=== PATIENT | female | born 2000 ===

== ENCOUNTER 2018-06-17 04:09 | Emergency (ER) | payer OTHER ==
[2018-06-17] MEDS ORDERED: Sodium Chloride 0.9% 1,000 ML IV ONE (04:34)
--- NOTE | 2018-06-17 04:39 | C.PDOC ---
History Of Present Illness 17 year old brought to the ED by grandmother complaining of abdominal pain, nausea, and vomiting for one hour. Patient states the last PO intake she had was spaghetti, rice, beans, and chicken wings. Notes a h/o similar symptoms in the past. She was given omeprazole at home. Patient denies any fever, chills, diarrhea, SOB, CP, or any other symptoms. Time Seen by Provider: 06/17/18 04:23 Chief Complaint (Nursing): Abdominal Pain History Per: Patient, Family (Grandmother ) History/Exam Limitations: no limitations Onset/Duration Of Symptoms: Hrs (one) Current Symptoms Are (Timing): Still Present Context: Food Location Of Pain/Discomfort: Epigastric Radiation Of Pain To:: None Associated Symptoms: Nausea, Vomiting. denies: Fever, Chills, Diarrhea, Chest Pain Past Medical History Reviewed: Historical Data, Nursing Documentation, Vital Signs Vital Signs: Last Vital Signs Temp 98 F 06/17/18 06:44 Pulse 80 06/17/18 06:44 Resp 14 06/17/18 06:44 BP 130/70 06/17/18 06:44 Pulse Ox 98 06/17/18 06:44 - Medical History PMH: Asthma Surgical History: No Surg Hx Family History: States: No Known Family Hx - Social History Hx Alcohol Use: No Hx Substance Use: No - Immunization History Hx Tetanus Toxoid Vaccination: No Hx Influenza Vaccination: No Hx Pneumococcal Vaccination: No Review Of Systems Except As Marked, All Systems Reviewed And Found Negative. Constitutional: Positive for: Fever, Chills Cardiovascular: Negative for: Chest Pain Respiratory: Negative for: Shortness of Breath Gastrointestinal: Positive for: Nausea, Vomiting, Abdominal Pain. Negative for : Diarrhea Physical Exam - Physical Exam Appears: Non-toxic, No Acute Distress Skin: Warm, Dry Head: Atraumatic, Normacephalic Eye(s): bilateral: Normal Inspection, EOMI Nose: Normal Oral Mucosa: Moist Neck: Normal ROM, Supple Chest: Symmetrical Cardiovascular: Rhythm Regular Respiratory: Normal Breath Sounds, No Accessory Muscle Use, Other (Speaking full sentences) Gastrointestinal/Abdominal: Soft, Tenderness (epigastric tenderness), No Distention, No Guarding, No Rebound Back: No CVA Tenderness, No Vertebral Tenderness Extremity: Bilateral: Atraumatic, Normal Color And Temperature, Normal ROM Neurological/Psych: Oriented x3, Normal Speech Gait: Steady ED Course And Treatment - Laboratory Results Result Diagrams: 06/17/18 04:51 06/17/18 04:51 O2 Sat by Pulse Oximetry: 100 (RA) Pulse Ox Interpretation: Normal Progress Note: Blood work done and urine collected and sent to the lab for analysis. Patient given Toradol 30mg IVP, Zofran 4mg IVP, Protonix 40mg IVP and IV fluids. On re-evaluation, pain improved. Mild tenderness to the epigastric area . Pt was offered US and declined. Notes she will be returning home (different country) and will have it done there. Notes she feels better and requests to go home. Tolerating po. Afebrile. Disposition - Disposition Referrals: [facility] [Outside] Disposition: HOME/ ROUTINE Disposition Time: 06:35 Condition: STABLE Additional Instructions: Radha un seguimiento con donovan mdico en 1-2 galvan. Regrese a la isidoro de emergencias si los sntomas persisten o empeoran. Prescriptions: Esomeprazole Magnesium [Nexium] 20 mg PO DAILY #10 ecc Instructions: Gastritis (DC) Forms: [employer] (Nigerian) Print Language: SOUTH [place]OREAN - Clinical Impression Clinical Impression: Abdominal pain, Vomiting - PA / SALES SERVICE TECHNICIAN / Resident Statement MD/DO has reviewed & agrees with the documentation as recorded. - Scribe Statement The provider has reviewed the documentation as recorded by the Scribe Lashay Kruse All medical record entries made by the Scribe were at my direction and personally dictated by me. I have reviewed the chart and agree that the record accurately reflects my personal performance of the history, physical exam, medical decision making, and the department course for this patient. I have also personally directed, reviewed, and agree with the discharge instructions and disposition.
[2018-06-17] MEDS ORDERED: Sodium Chloride 0.9% 1,000 ML ONE (04:53)
[2018-06-17 04:54] LABS: BASO % 0.4 % (0.0-2.0); EOS # 0.1 K/uL (0.0-0.7); EOS % 0.6 % (0.0-4.0); HEMOGLOBIN 13.2 g/dL (11.0-16.0); LYMPH # 1.4 K/uL (1.0-4.3); LYMPH % 13.1 % (20.0-40.0); MEAN CELL VOLUME 82.2 fL (81.0-99.0); MEAN CORPUSCULAR HGB CONC 34.1 g/dL (33.0-37.0); MEAN PLATELET VOLUME 8.2 fL (7.2-11.7); MONO # 0.5 K/uL (0.0-0.8); MONO % 4.8 % (0.0-10.0); NEUT # 8.4 K/uL (1.8-7.0); NEUT % 81.1 % (50.0-75.0); RBC 4.72 Mil/uL (3.80-5.20); RED CELL DISTRIBUTION WIDTH 13.4 % (11.5-14.5); WHITE BLOOD COUNT 10.4 K/uL (4.8-10.8)
[2018-06-17 05:07] LABS: HCG,QUALITATIVE URINE NEGATIVE (NEGATIVE); SQUAMOUS EPITHIAL 2 /hpf (0-5); URINE BACTERIA RARE (<OCC); URINE BILIRUBIN NEGATIVE (NEGATIVE); URINE BLOOD NEGATIVE (NEGATIVE); URINE CLARITY Clear (Clear); URINE COLOR Yellow (YELLOW); URINE GLUCOSE (UA) NORMAL (Normal); URINE LEUKOCYTE ESTERASE NEG Leu/uL (Negative); URINE PROTEIN NEGATIVE (NEGATIVE); URINE UROBILINOGEN NORMAL mg/dL (0.2-1.0)
[2018-06-17 06:31] LABS: BLOOD UREA NITROGEN 12 mg/dL (7-17); GFR AFRICAN-AMERICAN > 60; GFR NON-AFRICAN AMERICAN > 60
[2018-06-17 06:32] LABS: ALB/GLOB RATIO 1.5 (1.0-2.1); ALBUMIN 4.1 g/dL (3.5-5.0); ALT/SGPT 30 U/L (9-52); AST/SGOT 37 U/L (14-36); CALCIUM 9.2 mg/dl (8.6-10.4); LIPASE 51 U/L (23-300)
[2018-06-17 06:45] VITALS: BP 130/70; PULSE 80; RESP 14; TEMP 98
[2018-06-17 22:07] VITALS: O2SAT 100
== END 2018-06-17 06:45 | disposition home or self-care (01) ==
LOC: C.ER 04:09
DX: R10.9 Unspecified abdominal pain (principal); R11.10 Vomiting, unspecified
CPT/HCPCS: 80053; 81001; 83690; 84703; 85025; 96374; 96375; 99283; C9113; J1885; J2405; J7030